=== PATIENT | female | born 1995 | race Caucasian/White ===

== ENCOUNTER → 2016-06-03 | Outpatient (CLI) | payer BC | END | disposition home or self-care (01) | LOC: LABWHC1 15:53 | PROVIDERS: ATTEND Obstetrics & Gynecology | DX: Z34.92 Encounter for supervision of normal pregnancy, unspecified, second trimester (principal); Z3A.00 Weeks of gestation of pregnancy not specified | CPT/HCPCS: 36415; 82105; 82677; 84702; 86336 ==

== ENCOUNTER 2016-07-02 09:39 | Outpatient (CLI) | payer BC ==
[2016-07-02 10:00] LABS: Appearance,Urine Clear (Clear); Bilirubin,Urine Negative (Negative); Glucose,Urine (UA) Negative (Negative); Ketones,Urine 3+ (Negative); Leukocyte Esterase,Urine Negative (Negative); Mucus,Urine Occasional /hpf; Nitrite,Urine Negative (Negative); Particle Count 5969; Protein,Urine 2+ (Negative); Specific Gravity,Urine 1.022 (1.001-1.035); Squamous Epithelial Cell,Urine 4 /hpf (0-4); UA Billing (MACRO vs. MICRO) MICRO; WBC,Urine 3 /hpf (0-5)
[2016-07-02] MEDS ORDERED: ONDANSETRON 4 MG/2 ML VIAL IVP STA (10:12)
[2016-07-02] MEDS: LACTATED RINGERS 1,000 ML IV SCH ×2 (10:25→10:39)
== END 2016-07-02 11:10 | disposition home or self-care (01) ==
LOC: FBPOP 09:39
PROVIDERS: ATTEND Obstetrics & Gynecology
DX: O99.89 Other specified diseases and conditions complicating pregnancy, childbirth and the puerperium (principal); R10.9 Unspecified abdominal pain; R11.2 Nausea with vomiting, unspecified; Z3A.22 22 weeks gestation of pregnancy
CPT/HCPCS: 99214; 96360; 81001; J2405

== ENCOUNTER → 2016-08-24 | Outpatient (CLI) | payer BC, OTHER ==
[2016-08-24 16:00] LABS: CH 31.3; CHCM 34.2; HCT 33.4 % (34.0-46.0); HDW 2.98; HGB 11.1 gm/dL (11.4-16.0); MCH 30.6 pg (25.0-35.0); MCHC 33.3 g/dL (31.0-37.0); Mean Platelet Volume 7.6; RBC 3.63 m/uL (3.80-5.40); RDW 13.8 % (11.5-15.5); WBC 10.8 k/uL (4.0-11.0)
== END | disposition home or self-care (01) ==
LOC: LABWHC1 14:56
PROVIDERS: ATTEND Obstetrics & Gynecology
DX: Z34.82 Encounter for supervision of other normal pregnancy, second trimester (principal); Z3A.00 Weeks of gestation of pregnancy not specified
CPT/HCPCS: 36415; 82950; 85027

== ENCOUNTER 2016-09-01 06:49 | Emergency (ER) | payer BC, OTHER ==
[2016-09-01] MEDS ORDERED: IPRATROPIUM-ALBUTEROL 3 ML NEB INHALATION STA (07:27)
--- NOTE | 2016-09-01 07:29 | ED ---
General Adult HPI - General Chief complaint: Shortness of Breath Stated complaint: SOB-31 WKS Time Seen by Provider: 09/01/16 07:05 Source: patient, RN notes reviewed Mode of arrival: ambulatory Limitations: no limitations - History of Present Illness Initial comments: Patient is a pleasant 21-year-old female presenting to the emergency department with difficulty breathing. Onset was yesterday. Symptoms are worse today. Patient does have cough is dry nonproductive. No fevers. No chest pain. Patient is approximately 31 weeks gravid. No vaginal bleeding. No pelvic pain. Patient is feeling baby move. No history of similar symptoms previously. No history of chronic lung problems. - Related Data Home Medications Medication Instructions Recorded Confirmed Pnv with Ca,No.72/Iron/FA 1 tab PO HS 09/01/16 09/01/16 [ Plus Tablet] Previous Rx's Medication Instructions Recorded Albuterol Inhaler [Ventolin Hfa 2 puff INHALATION Q4HR PRN #1 09/01/16 Inhaler] inhaler Allergies Allergy/AdvReac Type Severity Reaction Status Date / Time No Known Allergies Allergy Verified 09/01/16 07:59 Review of Systems ROS Statement: Those systems with pertinent positive or pertinent negative responses have been documented in the HPI. ROS Other: All systems not noted in ROS Statement are negative. Constitutional: Denies: fever Eyes: Denies: eye pain ENT: Denies: ear pain Respiratory: Reports: cough, dyspnea Cardiovascular: Denies: chest pain Endocrine: Denies: fatigue Gastrointestinal: Denies: abdominal pain Genitourinary: Denies: dysuria Musculoskeletal: Denies: back pain Skin: Denies: rash Neurological: Denies: weakness Past Medical History Past Medical History: No Reported History History of Any Multi-Drug Resistant Organisms: None Reported Past Surgical History: Orthopedic Surgery Additional Past Surgical History / Comment(s): finger and elbow Past Psychological History: ADD/ADHD Smoking Status: Current every day smoker Past Alcohol Use History: None Reported Past Drug Use History: None Reported General Exam Limitations: no limitations General appearance: alert, in no apparent distress Head exam: Present: atraumatic Eye exam: Present: normal appearance, PERRL ENT exam: Present: normal oropharynx Neck exam: Present: normal inspection Respiratory exam: Present: wheezes (Mild expiratory wheeze) Cardiovascular Exam: Present: regular rate, normal rhythm GI/Abdominal exam: Present: soft, distended (Consistent with gravid state). Absent: tenderness Extremities exam: Present: normal inspection. Absent: pedal edema, calf tenderness Neurological exam: Present: alert Psychiatric exam: Present: normal affect, normal mood Skin exam: Absent: rash Course Vital Signs 09/01/16 09/01/16 09/01/16 06:53 07:46 07:53 Temperature 97.5 F L Pulse Rate 72 72 83 Respiratory 24 Rate Blood Pressure 118/73 O2 Sat by Pulse 97 Oximetry 09/01/16 08:39 Temperature 97.3 F L Pulse Rate 77 Respiratory 18 Rate Blood Pressure 120/66 O2 Sat by Pulse 97 Oximetry - Reevaluation(s) Reevaluation #1: 09/01/16 08:43 Patient reevaluated and improved. Lungs are clear. Patient was educated on risk for pulmonary embolism. Patient is felt to be low risk however is not at no risk. Patient is offered computed tomography scan and would like to have this done. Patient is explained risk of radiation exposure. EKG Findings - EKG Comments: EKG Findings:: Normal sinus rhythm 68. Normal intervals. Normal axis. Normal QRS. Normal ST-T. Medical Decision Making - Medical Decision Making Patient again reexamined and still resting symptom-free. Patient updated on results and plan. Patient will be discharged and advised to head to mother- baby. - Lab Data Result diagrams: 09/01/16 08:56 09/01/16 08:56 Lab Results 09/01/16 09/01/16 09/01/16 Range/Units 08:56 08:56 08:56 WBC 13.4 H (4.0-11.0) k/uL RBC 3.69 L (3.80-5.40) m/uL Hgb 11.7 (11.4-16.0) gm/dL Hct 32.7 L (34.0-46.0) % MCV 88.5 (80.0-100.0) fL MCH 31.6 (25.0-35.0) pg MCHC 35.7 (31.0-37.0) g/dL RDW 13.7 (11.5-15.5) % Plt Count 294 (150-450) k/uL Neutrophils % 79 % Lymphocytes % 14 % Monocytes % 4 % Eosinophils % 2 % Basophils % 0 % Neutrophils # 10.6 H (1.3-7.7) k/uL Lymphocytes # 1.8 (1.0-4.8) k/uL Monocytes # 0.6 (0-1.0) k/uL Eosinophils # 0.2 (0-0.7) k/uL Basophils # 0.0 (0-0.2) k/uL PT 9.3 (9.0-12.0) sec INR 0.9 (<1.1) APTT 21.9 L (22.0-30.0) sec Sodium 138 (137-145) mmol/L Potassium 3.7 (3.5-5.1) mmol/L Chloride 110 H (98-107) mmol/L Carbon Dioxide 21 L (22-30) mmol/L Anion Gap 7 mmol/L BUN 3 L (7-17) mg/dL Creatinine 0.48 L (0.52-1.04) mg/dL Est GFR (MDRD) Af Amer >60 (>60 ml/min/1.73 sqM) Est GFR (MDRD) Non-Af >60 (>60 ml/min/1.73 sqM) Glucose 97 (74-99) mg/dL Calcium 9.0 (8.4-10.2) mg/dL Total Bilirubin 0.4 (0.2-1.3) mg/dL AST 18 (14-36) U/L ALT 15 (9-52) U/L Alkaline Phosphatase 128 H (38-126) U/L Total Protein 6.6 (6.3-8.2) g/dL Albumin 3.3 L (3.5-5.0) g/dL - Radiology Data Radiology results: report reviewed (No acute process. No definite pulmonary embolism. Some limited assessment secondary to respiratory motion.), image reviewed (One view chest x-ray shows no acute process) Disposition Clinical Impression: Dyspnea, Bronchospasm Disposition: HOME SELF-CARE Condition: Stable Instructions: Bronchospasm (ED) Additional Instructions: Please head to mother-baby right now. Please follow-up with your [employer]IST in the next day or 2 for follow-up if she do not see them today. Return for fever, difficulty breathing, chest pain, worsening symptoms or other concerns. Prescriptions: Albuterol Inhaler [Ventolin Hfa Inhaler] 2 puff INHALATION Q4HR PRN #1 inhaler PRN Reason: Dyspnea Referrals: None,Stated [Primary Care Provider] - 1-2 days Yvette Addison DO [Doctor of Osteopathic Medicine] - 1-2 days Bekah Morrison MD [STAFF PHYSICIAN] - 1-2 days Time of Disposition: 10:02
--- NOTE | 2016-09-01 08:28 | XR ---
EXAMINATION TYPE: XR chest 1V portable DATE OF EXAM: 09/01/2016 8:21 AM COMPARISON: 07/11/2015 INDICATION: Dyspnea, short of breath TECHNIQUE: Single frontal view of the chest is obtained. Patient was carefully shielded. FINDINGS: The heart size is normal. The pulmonary vasculature is normal. The lungs are clear. IMPRESSION: 1. No acute pulmonary process.
[2016-09-01 08:40] VITALS: PULSE 77; RESP 18
[2016-09-01] MEDS ORDERED: SODIUM CHLORIDE 0.9% 1,000 ML IV STA (08:42)
[2016-09-01] MEDS ORDERED: RX INFO: IV CONTRAST WAS GIVEN 1 EACH MISC MISCELLANE PRN (08:43)
[2016-09-01 09:07] LABS: Basophils % (A) 0 %; CH 31.7; Eosinophils # (A) 0.2 k/uL (0-0.7); Eosinophils % (A) 2 %; HCT 32.7 % (34.0-46.0); HDW 3.16; HGB 11.7 gm/dL (11.4-16.0); Luc % (Auto) 2; Lymphocytes # (A) 1.8 k/uL (1.0-4.8); Lymphocytes % (A) 14 %; MCH 31.6 pg (25.0-35.0); MCHC 35.7 g/dL (31.0-37.0); MCV 88.5 fL (80.0-100.0); Monocytes # (A) 0.6 k/uL (0-1.0); Monocytes % (A) 4 %; Neutrophils # (A) 10.6 k/uL (1.3-7.7); Neutrophils % (A) 79 %; RBC 3.69 m/uL (3.80-5.40); RDW 13.7 % (11.5-15.5); WBC 13.4 k/uL (4.0-11.0); WBC (Perox) 14.55
[2016-09-01 09:17] LABS: ALT 15 U/L (9-52); AST 18 U/L (14-36); Alkaline Phosphatase 128 U/L (38-126); Anion Gap 7 mmol/L; Blood Urea Nitrogen 3 mg/dL (7-17); Carbon Dioxide 21 mmol/L (22-30); Chloride 110 mmol/L (98-107); Glucose 97 mg/dL (74-99); Non-African American GFR(MDRD) >60 (>60 ml/min/1.73 sqM); Potassium 3.7 mmol/L (3.5-5.1); Sodium 138 mmol/L (137-145); Total Bilirubin 0.4 mg/dL (0.2-1.3); Total Protein 6.6 g/dL (6.3-8.2)
[2016-09-01 09:19] LABS: INR 0.9 (<1.1); Partial Thromboplastin Time 21.9 sec (22.0-30.0); Prothrombin Time 9.3 sec (9.0-12.0)
--- NOTE | 2016-09-01 09:29 | CT ---
EXAMINATION TYPE: CT angio chest DATE OF EXAM: 09/01/2016 9:18 AM COMPARISON: NONE HISTORY: 21-year-old female with shortness of breath, cough. Patient 31 weeks . TECHNIQUE: Contiguous axial scanning of the chest performed with IV Contrast, patient injected with 5 9 mL of Omnipaque 350. Coronal/sagittal MIP reconstructions performed. CT DLP: 173.8 mGycm Automated exposure control for dose reduction was used. FINDINGS: The heart is normal size without pericardial effusion. Aorta is normal caliber with conventional arch vessel branching anatomy. While there is satisfactory opacification of the pulmonary arterial system, there is respiratory dillon on artifact grading assessment for pulmonary embolus. Within these exam limitations no definite pulmo nary embolus is seen. There is some hazy dependent atelectasis in the posterior lungs. No consolidation or pleural effusion . Visualized upper abdomen shows no gross abnormality. Bones: No osseous destructive process. IMPRESSION: 1. RESPIRATORY MOTION LIMITING ASSESSMENT. NO DEFINITE PULMONARY EMBOLUS. 2. NO ACUTE PULMONARY PROCESS.
[2016-09-01 10:18] VITALS: BP 119/61; TEMP 97
== END 2016-09-01 10:19 | disposition home or self-care (01) ==
LOC: EC 06:49
DX: O99.513 Diseases of the respiratory system complicating pregnancy, third trimester (principal); J98.01 Acute bronchospasm; O99.333 Smoking (tobacco) complicating pregnancy, third trimester; F17.200 Nicotine dependence, unspecified, uncomplicated; Z3A.31 31 weeks gestation of pregnancy
CPT/HCPCS: 99285; 96360; 36415; 94640; 93005; 80053; 85025; 85610; 85730; 71010; 71275; Q9967; 59025; 99213

== ENCOUNTER 2016-09-01 10:24 | Outpatient (CLI) | payer BC, OTHER ==
[2016-09-01 10:47] VITALS: BP 113/57; PULSE 69; RESP 20; TEMP 96.6
--- NOTE | 2016-09-04 20:46 | P.MSEPDOC ---
Presenting Problems - Arrival Data Date of Arrival on Unit: 09/01/16 Time of Arrival on Unit: 10:24 Mode of Transport: Wheelchair - Complaint OB-Reason for Admission/Chief Complaint: NST Medical History - Information : 1 Para: 0 Term: 0 : 0 Abortions: Spontaneous or Elective: 0 Number of Living Children: 0 - Gestational Age Expected Date of Delivery: 11/01/16 Gestational Age by FRANCO (wks/days): 31 Weeks and 5 Days - History Complications: Smoker Review of Systems - Review of Systems Constitutional: No problems Breast: No problems ENT: No problems Cardiovascular: No problems Respiratory: No problems Gastrointestinal: No problems Genitourinary: No problems Musculoskeletal: No problems Neurological: No problems Skin: No problems Vital Signs - Temperature Temperature: 96.6 F Temperature Source: Skin - Pulse Brachial Pulse Rate: 69 Pulse Assessment Method: Automatic Cuff - Respirations Respiratory Rate: 20 Oxygen Delivery Method: Room Air O2 Sat by Pulse Oximetry: 98 - Blood Pressure Right Arm Blood Pressure: 113/57 Blood Pressure Mean: 75 Blood Pressure Source: Automatic Cuff Medical Screen Scoring (Pre) - Cervical Exam Dilation: Exam Deferred Effacement: Exam Deferred Membranes: Intact - Uterine Contractions Frequency: N/A Duration: N/A Intensity: N/A - Maternal Vital Signs Maternal Temperature: N/A Maternal Blood Pressure: N/A Signs of Preeclampsia: N/A Maternal Respirations: N/A - Maternal Trauma Maternal Trauma: N/A - Assessment Baseline FHR: 130 Heart Rate - NICHD Category: Category I (Normal) = 0 NST: Reactive Position: N/A Station: N/A - Total Score Total Score (Pre): 0 - Level of Risk Level of Risk: Low (0-5) Physician Notification (Pre) - Physician Notified Physician Notified Date: 09/01/16 Physician Notified Time: 11:00 Physician/Practitioner Notifed:: dr rick Spoke With: dr rick - Notification Comment Comment: may discharged home Medical Screen Scoring (Post) - Post Treatment Level of Risk Post Treatment Level of Risk: Low (0-5) Disposition - Disposition OB Disposition: Triage, Discharge to home, Written follow up instructions reviewed Discharge Date: 09/01/16 Discharge Time: 11:10 I agree with the RN Medical Screening Exam: Yes Risk & Benefit of care provided described in d/c instruction: Yes Diagnosis: DECREASED MOVEMENTS, THIRD TRIMESTER, FETUS 1
== END 2016-09-01 11:10 | disposition home or self-care (01) ==
LOC: FBPOP 10:24
PROVIDERS: ATTEND Obstetrics & Gynecology
DX: O36.8190 Decreased fetal movements, unspecified trimester, not applicable or unspecified (principal); Z3A.31 31 weeks gestation of pregnancy
CPT/HCPCS: 59025; 99213

== ENCOUNTER 2016-09-15 11:09 | Outpatient (CLI) | payer BC, OTHER ==
[2016-09-15 11:52] VITALS: BP 118/66; PULSE 88; RESP 16; TEMP 96.1
--- NOTE | 2016-09-15 15:48 | P.MSEPDOC ---
Presenting Problems - Arrival Data Date of Arrival on Unit: 09/15/16 Time of Arrival on Unit: 11:07 Mode of Transport: Wheelchair - Complaint OB-Reason for Admission/Chief Complaint: Decreased Movement Comment: pt arrived c/o decreased movement since monday Medical History - Information : 1 Para: 0 Term: 0 : 0 Abortions: Spontaneous or Elective: 0 Number of Living Children: 0 - Gestational Age Expected Date of Delivery: 11/01/16 Gestational Age by FRANCO (wks/days): 33 Weeks and 2 Days - History Complications: Smoker Review of Systems - Review of Systems Constitutional: No problems Breast: No problems ENT: No problems Cardiovascular: No problems Respiratory: No problems Gastrointestinal: No problems Genitourinary: No problems Musculoskeletal: No problems Neurological: No problems Skin: No problems Vital Signs - Temperature Temperature: 96.1 F Temperature Source: Oral - Pulse Right Brachial Pulse Rate: 88 Pulse Assessment Method: Automatic Cuff - Respirations Respiratory Rate: 16 Oxygen Delivery Method: Room Air - Blood Pressure Right Arm Blood Pressure: 118/66 Blood Pressure Mean: 83 Blood Pressure Source: Automatic Cuff Medical Screen Scoring (Pre) - Cervical Exam Dilation: Exam Deferred Effacement: Exam Deferred - Uterine Contractions Frequency: N/A Duration: N/A Intensity: N/A - Maternal Vital Signs Maternal Temperature: N/A Maternal Blood Pressure: N/A Signs of Preeclampsia: N/A Maternal Respirations: N/A - Maternal Trauma Maternal Trauma: N/A - Assessment Baseline FHR: 140 Heart Rate - NICHD Category: Category I (Normal) = 0 NST: Reactive Position: N/A Station: N/A - Total Score Total Score (Pre): 0 - Level of Risk Level of Risk: Low (0-5) Physician Notification (Pre) - Physician Notified Physician Notified Date: 09/15/16 Physician Notified Time: 11:45 Physician/Practitioner Notifed:: dr hubbard Spoke With: dr hubbard New Order Received: No - Notification Comment Comment: pt discharged to home undelivered with instructions. reactive NST Medical Screen Scoring (Post) - Cervical Exam Dilation: Exam Deferred Effacement: Exam Deferred - Maternal Vital Signs Signs of Preeclampsia: N/A Maternal Respirations: N/A - Maternal Trauma Maternal Trauma: N/A - Assessment Heart Rate: 140 Heart Rate - NICHD Category: Category I (Normal) = 0 NST: Reactive Position: N/A Station: N/A - Total Score Total Score (Post): 0 - Post Treatment Level of Risk Post Treatment Level of Risk: Low (0-5) Physician Notification (Post) - Physician Notified Physician Notified Date: 09/15/16 Spoke With: dr haydee Durham Order Received: Yes (discharge to home) - Notification Comment Comment: reactive NST Disposition - Disposition OB Disposition: Discharge to home, Written follow up instructions reviewed Discharge Date: 09/15/16 Discharge Time: 11:50 I agree with the RN Medical Screening Exam: Yes Risk & Benefit of care provided described in d/c instruction: Yes Diagnosis: DECREASED MOVEMENTS, UNSP TRIMESTER, UNSP
== END 2016-09-15 11:50 | disposition home or self-care (01) ==
LOC: FBPOP 11:09
PROVIDERS: ATTEND Obstetrics & Gynecology
DX: O36.8130 Decreased fetal movements, third trimester, not applicable or unspecified (principal); Z3A.33 33 weeks gestation of pregnancy
CPT/HCPCS: 59025; 99213

== ENCOUNTER 2016-10-26 13:39 | Emergency (ER) | payer BC ==
[2016-10-26 13:57] VITALS: BP 119/79; PULSE 88; RESP 18; TEMP 98.2
[2016-10-26] MEDS ORDERED: PROPARACAINE 0.5% OPHTH DROPS 15 ML BTL ONE (13:59)
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
== END 2016-10-26 14:39 | disposition home or self-care (01) ==
LOC: EC 13:39
DX: S05.01XA Injury of conjunctiva and corneal abrasion without foreign body, right eye, initial encounter (principal); F17.200 Nicotine dependence, unspecified, uncomplicated; W20.8XXA Other cause of strike by thrown, projected or falling object, initial encounter
CPT/HCPCS: 99283

== ENCOUNTER 2016-10-27 06:05 | Inpatient (IN) | payer BC, OTHER ==
[2016-10-27] MEDS ORDERED: OXYTOCIN 20 UNITS/1000 ML NS 1,000 ML IV SCH ×2 (06:22→19:45)
[2016-10-27] MEDS ORDERED: AMPICILLIN 2,000 MG in SODIUM CHLORIDE 0.9% 100 ML IVPB STA (06:22)
[2016-10-27] MEDS ORDERED: OXYTOCIN 10 UNIT/ML 1 ML VIAL IM PRN (06:22)
[2016-10-27] MEDS ORDERED: CARBOPROST TROMETHAMINE 250 MCG/ML 1 ML AMP IM PRN (06:22)
[2016-10-27] MEDS ORDERED: LIDOCAINE 1% (PF) 10 MG/ML (30 ML SDV) SQ PRN (06:22)
[2016-10-27] MEDS ORDERED: TERBUTALINE 1 MG/ML VIAL SQ PRN (06:22)
[2016-10-27] MEDS ORDERED: METHYLERGONOVINE 0.2 MG/ML 1 ML AMP IM PRN (06:22)
[2016-10-27 06:32] LABS: Basophils % (A) 0 %; CH 30.1; CHCM 34.4; Eosinophils # (A) 0.1 k/uL (0-0.7); Eosinophils % (A) 2 %; HCT 35.1 % (34.0-46.0); HDW 3.15; HGB 11.6 gm/dL (11.4-16.0); Luc # (Auto) 0.19; Luc % (Auto) 3; Lymphocytes # (A) 2.1 k/uL (1.0-4.8); Lymphocytes % (A) 28 %; MCHC 33.1 g/dL (31.0-37.0); MCV 87.8 fL (80.0-100.0); Mean Platelet Volume 8.2; Monocytes # (A) 0.4 k/uL (0-1.0); Monocytes % (A) 5 %; Neutrophils # (A) 4.8 k/uL (1.3-7.7); Neutrophils % (A) 63 %; RDW 14.4 % (11.5-15.5); WBC 7.6 k/uL (4.0-11.0); WBC (Perox) 8.32
--- NOTE | 2016-10-27 06:40 | P.HPOB ---
History of Present Illness H&P Date: 10/27/16 Chief Complaint: Induction of Labor 21-year-old presents at 39 weeks and 2 days for induction of labor. Her cervix is 1 cm dilated, 80% effaced, and -2 station. She is frankie irregularly. heart tones 135-140 with moderate variability and reactive. Review of Systems All systems: negative Constitutional: Denies chills, Denies fever Eyes: denies blurred vision, denies pain Ears, nose, mouth and throat: Denies headache, Denies sore throat Cardiovascular: Denies chest pain, Denies shortness of breath Respiratory: Denies cough Gastrointestinal: Denies abdominal pain, Denies diarrhea, Denies nausea, Denies vomiting Genitourinary: Denies dysuria, Denies hematuria Musculoskeletal: Denies myalgias Integumentary: Denies pruritus, Denies rash Neurological: Denies numbness, Denies weakness Psychiatric: Denies anxiety, Denies depression Endocrine: Denies fatigue, Denies weight change Past Medical History Past Medical History: No Reported History Additional Past Medical History / Comment(s): Obstetric history: First was a spontaneous . This is her second . She's had care with me since 9 weeks gestation. Blood type is B+, antibodies negative, rubella immune, RPR nonreactive, hepatitis B negative. GBS positive. Normal anatomy ultrasound. History of Any Multi-Drug Resistant Organisms: None Reported Past Surgical History: Orthopedic Surgery Additional Past Surgical History / Comment(s): finger and elbow Past Anesthesia/Blood Transfusion Reactions: No Reported Reaction Past Psychological History: ADD/ADHD, Depression Smoking Status: Current every day smoker Past Alcohol Use History: None Reported Past Drug Use History: None Reported Medications and Allergies Home Medications Medication Instructions Recorded Confirmed Type Pnv,Calcium 72/Iron/Folic Acid 1 tab PO HS 09/01/16 10/27/16 History [ Plus Tablet] Allergies Allergy/AdvReac Type Severity Reaction Status Date / Time No Known Allergies Allergy Verified 10/27/16 06:21 Exam Osteopathic Statement: *. No significant issues noted on an osteopathic structural exam other than those noted in the History and Physical/Consult. - Vital Signs Vital signs: Intake and Output 10/26/16 10/26/16 10/27/16 14:59 22:59 06:59 Other: Weight 69.4 kg Patient Weight 10/27/16 06:59 Weight 69.4 kg Heart: Regular rate and rhythm Lungs: Clear to auscultation bilaterally Abdomen: Soft, nontender Extremities: Negative Homans sign Results Result Diagrams: 10/27/16 06:20 Assessment and Plan (1) Normal labor Status: Acute Plan: 1. Amniotomy and Pitocin for induction of labor 2. Anticipate normal vaginal delivery
[2016-10-27] MEDS: LACTATED RINGERS 1,000 ML IV SCH ×3 (06:45→13:06)
[2016-10-27 07:17] VITALS: BMI 28.9
[2016-10-27] MEDS ORDERED: ERYTHROMYCIN RIGHT EYE SCH (09:00)
[2016-10-27] MEDS ORDERED: BUTORPHANOL 1 MG/ML 1 ML VIAL IV PRN (10:19)
[2016-10-27] MEDS: AMPICILLIN 1,000 MG in SODIUM CHLORIDE 0.9% 50 ML IVPB SCH ×3 (10:39→21:54)
[2016-10-27] MEDS ORDERED: BUPIVACAINE (PF) 0.25% 30 ML VIAL ONE (12:40)
[2016-10-27] MEDS ORDERED: fentaNYL (PF) 50 MCG/ML 5 ML AMP ONE (12:40)
[2016-10-27] MEDS ORDERED: SODIUM CHLORIDE 0.9% 100 ML BAG ONE (12:40)
[2016-10-27] MEDS ORDERED: diphenhydrAMINE 50 MG/ML 1 ML VIAL IVP PRN ×2 (19:45)
[2016-10-27] MEDS ORDERED: IBUPROFEN 600 MG TAB PO PRN (19:45)
[2016-10-27] MEDS ORDERED: BENZOCAINE SPRAY 57GM TOPICAL PRN (19:45)
[2016-10-27] MEDS ORDERED: WITCH HAZEL 1 EACH MED..PAD TOPICAL PRN (19:45)
[2016-10-27] MEDS ORDERED: LANOLIN CREAM 5 GM TUBE TOPICAL PRN (19:45)
[2016-10-27] MEDS ORDERED: diphenhydrAMINE 50 MG CAP PO PRN (19:45)
[2016-10-27] MEDS ORDERED: diphenhydrAMINE 25 MG CAP PO PRN (19:45)
[2016-10-27] MEDS ORDERED: Acetaminophen-Codeine 300-30mg TAB PO PRN ×2 (19:45)
[2016-10-27] MEDS ORDERED: ACETAMINOPHEN TAB 325 MG TAB PO PRN (19:45)
[2016-10-27] MEDS ORDERED: ZOLPIDEM 5 MG TAB PO PRN (19:45)
[2016-10-27] MEDS ORDERED: HYDROCORTISONE 2.5% RECTAL CREAM 30 GM TUBE RECTAL PRN (19:45)
[2016-10-27] MEDS ORDERED: SIMETHICONE 80 MG CHEWABLE PO PRN (19:45)
--- NOTE | 2016-10-27 19:49 | P.PROBDLV ---
Vaginal Delivery Note - . Vaginal Delivery Note: 21-year-old presented at 39 weeks and 2 days for induction of labor. Her cervix was 1 cm dilated, 80% effaced, and -2 station. She was frankie irregularly. heart tones 130-135 with moderate variability and reactive. Amniotomy was performed at 6:33 AM, clear fluid noted. Pitocin was also started. Ampicillin was started for GBS prophylaxis. When she got to about 3 cm dilated she did get an epidural. Just after the epidural she did have a deceleration in the heart tones that lasted for over 5 minutes but she did have good return to baseline with moderate variability from then on after. Her cervix was completely dilated at 1921. She pushed, and delivered a viable female over intact perineum under epidural anesthesia at 1928. Head delivered OA, anterior shoulder delivered gentle downward traction followed by posterior shoulder and rest of body. Nose and mouth bulb suctioned, cord clamped and cut, placed on mother's abdomen. Apgars 9, 9, weight 5 lbs. 7 oz. Placenta delivered spontaneously, intact with three-vessel cord at 1931. Vagina, cervix, and perineum were inspected. Bilateral labial lacerations were repaired with 3-0 Vicryl. Estimated blood loss 200 mL. Mother and baby in stable condition.
[2016-10-27] MEDS: SENNOSIDES-DOCUSATE SODIUM 1 EACH TAB PO SCH (21:53)
--- NOTE | 2016-10-28 08:03 | P.DS ---
Providers Date of admission: 10/27/16 06:05 Expected date of discharge: 10/28/16 Attending physician: Yvette Addison Primary care physician: Stated None - Discharge Diagnosis(es) (1) Normal labor Current Visit: Yes Status: Resolved (2) Normal vaginal delivery Current Visit: Yes Status: Acute Hospital Course: Patient presented for induction of labor. She underwent a normal vaginal delivery and had an uncomplicated post course. She denies N/V, F/C, CP, SOB, calf pain. She will be discharged home PPD #1 in stable condition to follow up with me in 6 weeks. Plan - Discharge Summary New Discharge Prescriptions: New Acetaminophen-Codeine 300-30mg [Tylenol w/codeine #3] 2 each PO Q4HR PRN #30 tab PRN Reason: Moderate To Severe Pain Ibuprofen [Motrin] 600 mg PO Q6HR PRN #30 tab PRN Reason: Mild Pain Or Fever >= 100.5 No Action Pnv,Calcium 72/Iron/Folic Acid [ Plus Tablet] 1 tab PO HS Erythromycin Ophth Oint [Romycin Ophth Oint] 1 applic RIGHT EYE QID 10 Days Discharge Medication List Pnv,Calcium 72/Iron/Folic Acid [ Plus Tablet] 1 tab PO HS 09/01/16 [ History] Erythromycin Ophth Oint [Romycin Ophth Oint] 1 applic RIGHT EYE QID 10 Days [Rx] Acetaminophen-Codeine 300-30mg [Tylenol w/codeine #3] 2 each PO Q4HR PRN #30 tab 10/28/16 [Rx] Ibuprofen [Motrin] 600 mg PO Q6HR PRN #30 tab 10/28/16 [Rx] Follow up Appointment(s)/Referral(s): Yvette Addison DO [Doctor of Osteopathic Medicine] - 6 Weeks
[2016-10-28] MEDS: SENNOSIDES-DOCUSATE SODIUM 1 EACH TAB PO SCH (08:25)
[2016-10-28 09:04] VITALS: RESP 20
[2016-10-28 17:32] VITALS: BP 148/92; PULSE 86; TEMP 98.2
== END 2016-10-28 20:10 | disposition home or self-care (01) | DRG 775 ==
LOC: 4FBP 06:05
PROVIDERS: ADMIT Obstetrics & Gynecology; ATTEND Obstetrics & Gynecology
PROC: 0HQ9XZZ Repair Perineum Skin, External Approach (ICD-10-PCS; principal; 2016-10-27)
PROC: 00HU33Z Insertion of Infusion Device into Spinal Canal, Percutaneous Approach (ICD-10-PCS; principal; 2016-10-27)
PROC: 10907ZC Drainage of Amniotic Fluid, Therapeutic from Products of Conception, Via Natural or Artificial Opening (ICD-10-PCS; principal; 2016-10-27)
PROC: 3E033VJ Introduction of Other Hormone into Peripheral Vein, Percutaneous Approach (ICD-10-PCS; principal; 2016-10-27)
PROC: 10E0XZZ Delivery of Products of Conception, External Approach (ICD-10-PCS; principal; 2016-10-27)
PROC: 3E0R3CZ (ICD-10-PCS; principal; 2016-10-27)
DX: O99.824 Streptococcus B carrier state complicating childbirth (principal); F17.200 Nicotine dependence, unspecified, uncomplicated; Z37.0 Single live birth; O70.0 First degree perineal laceration during delivery; O99.334 Smoking (tobacco) complicating childbirth; Z3A.39 39 weeks gestation of pregnancy; O76 Abnormality in fetal heart rate and rhythm complicating labor and delivery
CPT/HCPCS: 85025; 88307

== ENCOUNTER 2017-01-12 21:10 | Emergency (ER) | payer BC, OTHER ==
[2017-01-12] MEDS ORDERED: ONDANSETRON 4 MG/2 ML VIAL IVP STA (21:24)
[2017-01-12] MEDS ORDERED: LORazepam 2 MG/ML SYRINGE IV STA (21:24)
[2017-01-12] MEDS ORDERED: METOCLOPRAMIDE 5 MG/ML 2 ML VIAL IVP STA (21:24)
[2017-01-12] MEDS ORDERED: diphenhydrAMINE 50 MG/ML 1 ML VIAL IVP STA (21:24)
[2017-01-12] MEDS ORDERED: SODIUM CHLORIDE 0.9% 1,000 ML IV STA (21:24)
[2017-01-12] MEDS ORDERED: KETOROLAC 30 MG/ML 1 ML VIAL IVP STA (21:24)
--- NOTE | 2017-01-12 21:26 | ED ---
General Adult HPI - General Chief complaint: Headache Stated complaint: Migraine Time Seen by Provider: 01/12/17 21:18 Source: patient, RN notes reviewed, old records reviewed Mode of arrival: ambulatory Limitations: no limitations - History of Present Illness Initial comments: This is a 21-year-old female here for evaluation of migraine. Patient has severe migraine with active nausea vomiting. Patient states she has history of migraines history of the exact same headache that she is having now. Hospital deficit. Just severe nausea vomiting and headache headache is one sided, anterior with throbbing, - Related Data Home Medications Medication Instructions Recorded Confirmed Pnv,Calcium 72/Iron/Folic Acid 1 tab PO HS 09/01/16 01/12/17 [ Plus Tablet] Previous Rx's Medication Instructions Recorded Ibuprofen [Motrin] 600 mg PO Q6HR PRN #30 tab 10/28/16 Allergies Allergy/AdvReac Type Severity Reaction Status Date / Time No Known Allergies Allergy Verified 10/27/16 06:21 Review of Systems ROS Statement: Those systems with pertinent positive or pertinent negative responses have been documented in the HPI. ROS Other: All systems not noted in ROS Statement are negative. Past Medical History Past Medical History: No Reported History Additional Past Medical History / Comment(s): Obstetric history: First was a spontaneous . This is her second . She's had care with me since 9 weeks gestation. Blood type is B+, antibodies negative, rubella immune, RPR nonreactive, hepatitis B negative. GBS positive. Normal anatomy ultrasound. History of Any Multi-Drug Resistant Organisms: None Reported Past Surgical History: Orthopedic Surgery Additional Past Surgical History / Comment(s): finger and elbow Past Anesthesia/Blood Transfusion Reactions: No Reported Reaction Past Psychological History: ADD/ADHD, Depression Smoking Status: Current every day smoker Past Alcohol Use History: None Reported Past Drug Use History: None Reported - Past Family History Mother Family Medical History: Thyroid Disorder General Exam Limitations: no limitations General appearance: alert, in no apparent distress Head exam: Present: atraumatic, normocephalic, normal inspection Eye exam: Present: normal appearance, PERRL, EOMI. Absent: scleral icterus, conjunctival injection, periorbital swelling ENT exam: Present: normal exam, mucous membranes moist Neck exam: Present: normal inspection. Absent: tenderness, meningismus, lymphadenopathy Respiratory exam: Present: normal lung sounds bilaterally. Absent: respiratory distress, wheezes, rales, rhonchi, stridor Cardiovascular Exam: Present: regular rate, normal rhythm, normal heart sounds. Absent: systolic murmur, diastolic murmur, rubs, gallop, clicks GI/Abdominal exam: Present: soft, normal bowel sounds. Absent: distended, tenderness, guarding, rebound, rigid Extremities exam: Present: normal inspection, full ROM, normal capillary refill. Absent: tenderness, pedal edema, joint swelling, calf tenderness Back exam: Present: normal inspection Neurological exam: Present: alert, oriented X3, CN II-XII intact Psychiatric exam: Present: normal affect, normal mood Skin exam: Present: warm, dry, intact, normal color. Absent: rash Course Vital Signs 01/12/17 21:13 Temperature 98.2 F Pulse Rate 65 Respiratory 20 Rate Blood Pressure 125/77 O2 Sat by Pulse 98 Oximetry - Reevaluation(s) Reevaluation #1: 01/12/17 21:25 Medical records to review of Medical Decision Making - Medical Decision Making 21 female in the ER with migraine headache, headache is improved prior to discharge. Patient's eye better and can be discharged home Disposition Clinical Impression: Migraine Disposition: HOME SELF-CARE Condition: Good Instructions: Acute Headache (ED) Referrals: None,Stated [Primary Care Provider] - 1-2 days
[2017-01-12 22:56] VITALS: BP 141/63; PULSE 63; RESP 16; TEMP 97.9
== END 2017-01-12 22:55 | disposition home or self-care (01) ==
LOC: EC 21:10
DX: G43.909 Migraine, unspecified, not intractable, without status migrainosus (principal); R11.2 Nausea with vomiting, unspecified; F17.200 Nicotine dependence, unspecified, uncomplicated; Z79.899 Other long term (current) drug therapy
CPT/HCPCS: 99283; 96374; 96375 ×4; 96361; J2060; J1200; J2765; J2405; J1885

== ENCOUNTER 2017-05-17 20:08 | Emergency (ER) | payer BC, OTHER ==
[2017-05-17] MEDS ORDERED: diphenhydrAMINE 50 MG/ML 1 ML VIAL IVP STA (20:51)
[2017-05-17] MEDS ORDERED: KETOROLAC 30 MG/ML 1 ML VIAL IVP STA (20:51)
[2017-05-17] MEDS ORDERED: SODIUM CHLORIDE 0.9% 1,000 ML IV STA (20:51)
[2017-05-17] MEDS ORDERED: METOCLOPRAMIDE 5 MG/ML 2 ML VIAL IVP STA (20:51)
[2017-05-17 23:37] VITALS: BP 127/90; PULSE 81; RESP 18; TEMP 97
--- NOTE | 2017-05-18 04:32 | ED ---
Headache HPI - General Chief Complaint: Headache Stated Complaint: Headache Time Seen by Provider: 05/17/17 20:37 Mode of arrival: ambulatory Limitations: no limitations - History of Present Illness Initial Comments: 22-year-old female patient presents to the emergency department today for evaluation of migraine headache. Patient states that she frequently does have migraines. States that she has been evaluated by her doctor and is treated with Aleve for these. She states that this headache started approximately one to 2 hours ago. States that she is having light and sound sensitivity with this. States that she is having blurred vision. She states she has been nauseated however has not vomited. She denies any neck pain, fever, dizziness, or weakness. States that these symptoms are very consistent with her usual migraine pattern. She states she did take Aleve without relief. She states prior to the headache she was feeling well. Patient denies any recent rash, shortness breath, chest pain, abdominal pain, nausea, vomiting, diarrhea, constipation, back pain, numbness, tingling, hematuria, dysuria, urinary urgency , urinary frequency, or any other complaints. - Related Data Home Medications Medication Instructions Recorded Confirmed Naproxen Sodium [Aleve] 440 mg PO DAILY PRN 05/17/17 05/17/17 Allergies Allergy/AdvReac Type Severity Reaction Status Date / Time tetanus and diphtheria Allergy Unknown Verified 05/17/17 20:23 toxoids Review of Systems ROS Statement: Those systems with pertinent positive or pertinent negative responses have been documented in the HPI. ROS Other: All systems not noted in ROS Statement are negative. Past Medical History Past Medical History: No Reported History Additional Past Medical History / Comment(s): migraines History of Any Multi-Drug Resistant Organisms: None Reported Past Surgical History: Orthopedic Surgery Additional Past Surgical History / Comment(s): finger and elbow Past Anesthesia/Blood Transfusion Reactions: No Reported Reaction Past Psychological History: ADD/ADHD, Depression Smoking Status: Current every day smoker Past Alcohol Use History: None Reported Past Drug Use History: None Reported - Past Family History Mother Family Medical History: Thyroid Disorder General Exam Limitations: no limitations General appearance: alert, in no apparent distress, other (This is a well- developed, well-nourished adult patient in no acute distress. Vital signs upon presentation are temperature 97.0F, pulse 81, respirations 18, blood pressure 127/90, pulse ox 98% on room air.) Eye exam: Present: normal appearance, PERRL, EOMI. Absent: scleral icterus, conjunctival injection, periorbital swelling ENT exam: Present: normal exam, normal oropharynx, mucous membranes moist, TM's normal bilaterally Neck exam: Present: normal inspection. Absent: tenderness, meningismus, lymphadenopathy Respiratory exam: Present: normal lung sounds bilaterally. Absent: respiratory distress, wheezes, rales, rhonchi, stridor Cardiovascular Exam: Present: regular rate, normal rhythm, normal heart sounds. Absent: systolic murmur, diastolic murmur, rubs, gallop, clicks GI/Abdominal exam: Present: soft, normal bowel sounds. Absent: distended, tenderness, guarding, rebound, rigid Neurological exam: Present: alert, oriented X3, CN II-XII intact, other ( Strength in all 4 extremities is 5/5.) Psychiatric exam: Present: normal affect, normal mood Skin exam: Present: warm, dry, intact, normal color. Absent: rash Course Vital Signs 05/17/17 20:09 Temperature 97.0 F L Pulse Rate 81 Respiratory 18 Rate Blood Pressure 127/90 O2 Sat by Pulse 98 Oximetry Medical Decision Making - Medical Decision Making 22-year-old female patient presented to the emergency department today with complaints of migraine headache. Physical examination was unremarkable. Patient was neurologically intact. Medications and IV were ordered. She did receive these medications. Shortly after receiving the medications patient pulled out her IV and eloped from the department. I was unable to evaluate the medications effectiveness or perform reevaluation. Disposition Clinical Impression: Migraine, Left against medical advice Disposition: Left Against Medical Advice Condition: Undetermined Referrals: None,Stated [Primary Care Provider] - 1-2 days
== END 2017-05-17 21:50 | disposition left against medical advice (07) ==
LOC: EC 20:08
DX: G43.909 Migraine, unspecified, not intractable, without status migrainosus (principal); F17.200 Nicotine dependence, unspecified, uncomplicated; Z88.7 Allergy status to serum and vaccine
CPT/HCPCS: 99283; 96374; 96375 ×2; J1200; J2765; J1885

== ENCOUNTER 2018-04-25 09:23 | Emergency (ER) | payer BC, OTHER ==
[2018-04-25] MEDS ORDERED: SODIUM CHLORIDE 0.9% 500 ML 500 ML IV STA (10:19)
[2018-04-25] MEDS ORDERED: KETOROLAC 30 MG/ML 1 ML VIAL IVP STA (10:19)
--- NOTE | 2018-04-25 10:27 | ED ---
General Adult HPI - General Chief complaint: Back Pain/Injury Stated complaint: Back Pain Time Seen by Provider: 04/25/18 10:00 Source: patient, RN notes reviewed Mode of arrival: ambulatory Limitations: no limitations - History of Present Illness Initial comments: This is a 23-year-old female presents emergency Department stating 1 week ago she had 3 days interval where she was having hematuria. Patient states she was also having some right-sided flank and suprapubic abdominal pain at that time but since then the pain is gotten considerably worse particularly in her back about the CVA area in her right side only. Patient denies any fever chills per patient states she's been nauseated and has vomited. Patient denies any diarrhea. Patient denies any abdominal surgeries. Patient states she's never had symptoms like this before except for maybe a urinary tract infection. Patient states she is not currently on her period. - Related Data Previous Rx's Medication Instructions Recorded Sulfamethox-Tmp 800-160Mg [Bactrim 1 each PO Q12HR #28 tab 04/25/18 DS 800-160 mg] Allergies Allergy/AdvReac Type Severity Reaction Status Date / Time tetanus and diphtheria Allergy Unknown Verified 04/25/18 10:02 toxoids Review of Systems ROS Statement: Those systems with pertinent positive or pertinent negative responses have been documented in the HPI. ROS Other: All systems not noted in ROS Statement are negative. Past Medical History Past Medical History: No Reported History Additional Past Medical History / Comment(s): Obstetric history: First was a spontaneous . This is her second . She's had care with me since 9 weeks gestation. Blood type is B+, antibodies negative, rubella immune, RPR nonreactive, hepatitis B negative. GBS positive. Normal anatomy ultrasound. History of Any Multi-Drug Resistant Organisms: None Reported Past Surgical History: Orthopedic Surgery Additional Past Surgical History / Comment(s): finger and elbow Past Anesthesia/Blood Transfusion Reactions: No Reported Reaction Past Psychological History: ADD/ADHD, Depression Smoking Status: Current every day smoker Past Alcohol Use History: None Reported Past Drug Use History: None Reported - Past Family History Mother Family Medical History: Thyroid Disorder General Exam - General Exam Comments Initial Comments: GENERAL: Patient is well-developed and well-nourished. Patient is nontoxic and well- hydrated and is in mild distress. ENT: Neck is soft and supple. No significant lymphadenopathy is noted. Oropharynx is clear. Moist mucous membranes. Neck has full range of motion without eliciting any pain. EYES: The sclera were anicteric and conjunctiva were pink and moist. Extraocular movements were intact and pupils were equal round and reactive to light. Eyelids were unremarkable. PULMONARY: Unlabored respirations. Good breath sounds bilaterally. No audible rales rhonchi or wheezing was noted. CARDIOVASCULAR: There is a regular rate and rhythm without any murmurs gallops or rubs. ABDOMEN: Patient has tenderness in the suprapubic region bilaterally. SKIN: Skin is clear with no lesions or rashes and otherwise unremarkable. NEUROLOGIC: Patient is alert and oriented x3. Cranial nerves II through XII are grossly intact. Motor and sensory are also intact. Normal speech, volume and content. Symmetrical smile. MUSCULOSKELETAL: Normal extremities with adequate strength and full range of motion. No lower extremity swelling or edema. No calf tenderness. Patient has CVA tenderness on the right LYMPHATICS: No significant lymphadenopathy is noted PSYCHIATRIC: Normal psychiatric evaluation. Limitations: no limitations Course Vital Signs 04/25/18 09:34 Temperature 98.0 F Pulse Rate 95 Respiratory 20 Rate Blood Pressure 133/93 O2 Sat by Pulse 100 Oximetry Medical Decision Making - Medical Decision Making CAT scan showed signs consistent with cystitis. The urine was infected I gave the patient 2 g of Rocephin as well as Toradol shot. I went back into reexamine the patient and she was sleeping and pain-free in looking to go home. Patient also had signs of pyelonephritis on physical exam - Lab Data Result diagrams: 04/25/18 10:41 04/25/18 10:41 Lab Results 04/25/18 04/25/18 04/25/18 Range/Units 10:41 10:41 10:41 WBC 13.1 H (3.8-10.6) k/uL RBC 4.88 (3.80-5.40) m/uL Hgb 14.6 (11.4-16.0) gm/dL Hct 42.6 (34.0-46.0) % MCV 87.4 (80.0-100.0) fL MCH 29.8 (25.0-35.0) pg MCHC 34.2 (31.0-37.0) g/dL RDW 12.9 (11.5-15.5) % Plt Count 319 (150-450) k/uL Neutrophils % 76 % Lymphocytes % 13 % Monocytes % 7 % Eosinophils % 2 % Basophils % 0 % Neutrophils # 10.0 H (1.3-7.7) k/uL Lymphocytes # 1.7 (1.0-4.8) k/uL Monocytes # 0.9 (0-1.0) k/uL Eosinophils # 0.3 (0-0.7) k/uL Basophils # 0.0 (0-0.2) k/uL PT 9.9 (9.0-12.0) sec INR 0.9 (<1.2) APTT 25.5 (22.0-30.0) sec Sodium 140 (137-145) mmol/L Potassium 4.3 (3.5-5.1) mmol/L Chloride 106 (98-107) mmol/L Carbon Dioxide 24 (22-30) mmol/L Anion Gap 10 mmol/L BUN 9 (7-17) mg/dL Creatinine 0.58 (0.52-1.04) mg/dL Est GFR (CKD-EPI)AfAm >90 (>60 ml/min/1.73 sqM) Est GFR (CKD-EPI)NonAf >90 (>60 ml/min/1.73 sqM) Glucose 98 (74-99) mg/dL Calcium 9.7 (8.4-10.2) mg/dL Total Bilirubin 0.8 (0.2-1.3) mg/dL AST 22 (14-36) U/L ALT 24 (9-52) U/L Alkaline Phosphatase 97 (38-126) U/L Total Protein 7.2 (6.3-8.2) g/dL Albumin 4.1 (3.5-5.0) g/dL Amylase 34 (30-110) U/L Lipase 39 (23-300) U/L Urine Color Urine Appearance (Clear) Urine pH (5.0-8.0) Ur Specific [place] (1.001-1.035) Urine Protein (Negative) Urine Glucose (UA) (Negative) Urine Ketones (Negative) Urine Blood (Negative) Urine Nitrite (Negative) Urine Bilirubin (Negative) Urine Urobilinogen (<2.0) mg/dL Ur Leukocyte Esterase (Negative) Urine RBC (0-5) /hpf Urine WBC (0-5) /hpf Urine WBC Clumps (None) /hpf Urine Bacteria (None) /hpf Urine Mucus (None) /hpf Urine HCG, Qual (Not Detectd) 04/25/18 04/25/18 Range/Units 10:41 10:41 WBC (3.8-10.6) k/uL RBC (3.80-5.40) m/uL Hgb (11.4-16.0) gm/dL Hct (34.0-46.0) % MCV (80.0-100.0) fL MCH (25.0-35.0) pg MCHC (31.0-37.0) g/dL RDW (11.5-15.5) % Plt Count (150-450) k/uL Neutrophils % % Lymphocytes % % Monocytes % % Eosinophils % % Basophils % % Neutrophils # (1.3-7.7) k/uL Lymphocytes # (1.0-4.8) k/uL Monocytes # (0-1.0) k/uL Eosinophils # (0-0.7) k/uL Basophils # (0-0.2) k/uL PT (9.0-12.0) sec INR (<1.2) APTT (22.0-30.0) sec Sodium (137-145) mmol/L Potassium (3.5-5.1) mmol/L Chloride (98-107) mmol/L Carbon Dioxide (22-30) mmol/L Anion Gap mmol/L BUN (7-17) mg/dL Creatinine (0.52-1.04) mg/dL Est GFR (CKD-EPI)AfAm (>60 ml/min/1.73 sqM) Est GFR (CKD-EPI)NonAf (>60 ml/min/1.73 sqM) Glucose (74-99) mg/dL Calcium (8.4-10.2) mg/dL Total Bilirubin (0.2-1.3) mg/dL AST (14-36) U/L ALT (9-52) U/L Alkaline Phosphatase (38-126) U/L Total Protein (6.3-8.2) g/dL Albumin (3.5-5.0) g/dL Amylase (30-110) U/L Lipase (23-300) U/L Urine Color Yellow Urine Appearance Cloudy H (Clear) Urine pH 7.0 (5.0-8.0) Ur Specific [place] 1.013 (1.001-1.035) Urine Protein 1+ H (Negative) Urine Glucose (UA) Negative (Negative) Urine Ketones Negative (Negative) Urine Blood Small H (Negative) Urine Nitrite Negative (Negative) Urine Bilirubin Negative (Negative) Urine Urobilinogen <2.0 (<2.0) mg/dL Ur Leukocyte Esterase Large H (Negative) Urine RBC 37 H (0-5) /hpf Urine WBC >182 H (0-5) /hpf Urine WBC Clumps Few H (None) /hpf Urine Bacteria Rare H (None) /hpf Urine Mucus Rare H (None) /hpf Urine HCG, Qual Not Detected (Not Detectd) Disposition Clinical Impression: Pyelonephritis, Cystitis Disposition: HOME SELF-CARE Condition: Good Instructions: Kidney Infection (ED) Prescriptions: Sulfamethox-Tmp 800-160Mg [Bactrim DS 800-160 mg] 1 each PO Q12HR #28 tab Is patient prescribed a controlled substance at d/c from ED?: No Referrals: None,Stated [Primary Care Provider] - 1-2 days Time of Disposition: 12:47
[2018-04-25 11:04] LABS: Appearance,Urine Cloudy (Clear); Bacteria,Urine Rare /hpf; Bilirubin,Urine Negative (Negative); Blood,Urine Small (Negative); Color,Urine Yellow; Glucose,Urine (UA) Negative (Negative); Ketones,Urine Negative (Negative); Leukocyte Esterase,Urine Large (Negative); Mucus,Urine Rare /hpf; Nitrite,Urine Negative (Negative); Protein,Urine 1+ (Negative); RBC,Urine 37 /hpf (0-5); Specific Gravity,Urine 1.013 (1.001-1.035); Urobilinogen,Urine <2.0 mg/dL (<2.0); WBC,Urine >182 /hpf (0-5)
[2018-04-25 11:07] LABS: Basophils % (A) 0 %; Eosinophils # (A) 0.3 k/uL (0-0.7); Eosinophils % (A) 2 %; HCT 42.6 % (34.0-46.0); HGB 14.6 gm/dL (11.4-16.0); Lymphocytes # (A) 1.7 k/uL (1.0-4.8); Lymphocytes % (A) 13 %; MCH 29.8 pg (25.0-35.0); MCHC 34.2 g/dL (31.0-37.0); MCV 87.4 fL (80.0-100.0); Mean Platelet Volume 8.1; Monocytes # (A) 0.9 k/uL (0-1.0); Monocytes % (A) 7 %; Neutrophils % (A) 76 %; Platelet Count 319 k/uL (150-450); RBC 4.88 m/uL (3.80-5.40); RDW 12.9 % (11.5-15.5); WBC 13.1 k/uL (3.8-10.6)
[2018-04-25 11:09] LABS: ALT 24 U/L (9-52); AST 22 U/L (14-36); Albumin 4.1 g/dL (3.5-5.0); Alkaline Phosphatase 97 U/L (38-126); Amylase 34 U/L (30-110); Anion Gap 10 mmol/L; Blood Urea Nitrogen 9 mg/dL (7-17); Calcium 9.7 mg/dL (8.4-10.2); Carbon Dioxide 24 mmol/L (22-30); Chloride 106 mmol/L (98-107); Glucose 98 mg/dL (74-99); Lipase 39 U/L (23-300); Potassium 4.3 mmol/L (3.5-5.1); Sodium 140 mmol/L (137-145); Total Bilirubin 0.8 mg/dL (0.2-1.3); Total Protein 7.2 g/dL (6.3-8.2)
[2018-04-25] MEDS ORDERED: cefTRIAXone 2,000 MG in SODIUM CHLORIDE 0.9% 100 ML IVPB STA (11:23)
[2018-04-25 11:40] LABS: INR 0.9 (<1.2); Partial Thromboplastin Time 25.5 sec (22.0-30.0); Prothrombin Time 9.9 sec (9.0-12.0)
--- NOTE | 2018-04-25 11:56 | CT ---
EXAMINATION TYPE: CT abdomen pelvis wo con DATE OF EXAM: 04/25/2018 COMPARISON: None HISTORY: Back pain, hematuria CT DLP: 277.5 mGycm Automated exposure control for dose reduction was used. TECHNIQUE: Helical acquisition of images was performed from the lung bases through the pelvis. FINDINGS: LUNG BASES: No significant abnormality is appreciated. LIVER/GB: No significant abnormality is appreciated. Small amount of biliary sludge layers within the gallbladder dependently. PANCREAS: No significant abnormality is seen. SPLEEN: No significant abnormality is seen. ADRENALS: No significant abnormality is seen. KIDNEYS: There is no hydronephrosis or evidence of obstructive uropathy. No ureteral calculi are seen . Diffuse medullary spongy hyperdensities can be seen in a mild form of medullary sponge kidney. FREE AIR: No free air is visualized RETROPERITONEAL ADENOPATHY: No greater than 1 cm short axis lymph nodes are seen within the abdomen or pelvis. REPRODUCTIVE ORGANS: Follicular and/or cystic changes are seen of both ovaries. URINARY BLADDER: There is circumferential urinary bladder wall thickening that could relate to incomp lete distention although cystitis is suspected as there is mild perivesicular fat stranding centrally seen such as on series 201 image 113. OSSEOUS STRUCTURES: No significant abnormality is seen. BOWEL: There is a punctate appendicolith within the distal appendix. No dilated appendix. Appendix i s air-filled without periappendiceal fat stranding. There is a moderate amount retained colonic stool noted no dilated large or small bowel. Sacroiliac joint sclerosis is seen that can be seen in inflam matory bowel disease, arthropathy, or early degenerative change. IMPRESSION: 1. DIFFUSE URINARY BLADDER WALL THICKENING AND MILD PERIVESICULAR FAT STRANDING IS MOST COMPATIBLE WI TH CYSTITIS. SMUDGY MEDULLARY PYRAMID CALCIFICATIONS BILATERALLY SUGGESTS A MILD FORM OF MEDULLARY SP ONGE KIDNEY. 2. PUNCTATE APPENDICOLITH WITHIN THE DISTAL APPENDIX. NO EVIDENCE OF ACUTE APPENDICITIS.
[2018-04-25 13:28] VITALS: TEMP 98.1
[2018-04-25 14:22] VITALS: BP 127/84; PULSE 89; RESP 16
== END 2018-04-25 14:20 | disposition home or self-care (01) ==
LOC: EC 09:23
DX: N12 Tubulo-interstitial nephritis, not specified as acute or chronic (principal); N30.91 Cystitis, unspecified with hematuria; F17.200 Nicotine dependence, unspecified, uncomplicated; Z88.7 Allergy status to serum and vaccine
CPT/HCPCS: 36415; 74176; 80053; 81001; 81025; 82150; 83690; 85025; 85610; 85730; 87086; 96361; 96365; 96375; 99284

== ENCOUNTER 2018-10-20 04:04 | Emergency (ER) | payer BC, OTHER ==
--- NOTE | 2018-10-20 04:34 | ED ---
Headache HPI - General Chief Complaint: Headache Stated Complaint: Migrane Time Seen by Provider: 10/20/18 04:15 Mode of arrival: ambulatory - History of Present Illness Initial Comments: Is a 23-year-old female with a history of migraines who presents to the emergency department this morning for evaluation of migraine headache. Patient reports the headache began around 10 PM and gradually worsened she took 2 ibuprofen around 11 PM which helped a little bit but she continues to have a headache so she came to the ER for evaluation. Headache was not sudden in onset is not associated with any focal neurologic deficits, not associated with fever. Headache is similar in character to previous headaches it is right sided sharp. MD Complaint: headache -: hour(s) Onset Description: gradual Location: right Severity: moderate Quality: sharp Consistency: constant Improves With: medication Worsens With: light, noise Associated Symptoms: photophobia Treatments Prior to Arrival: Ibuprofen - Related Data On Hormonal Control: No Previous Rx's Medication Instructions Recorded Sulfamethox-Tmp 800-160Mg [Bactrim 1 each PO Q12HR #28 tab 04/25/18 DS 800-160 mg] Allergies Allergy/AdvReac Type Severity Reaction Status Date / Time tetanus and diphtheria Allergy Unknown Verified 10/20/18 04:10 toxoids Review of Systems ROS Statement: Those systems with pertinent positive or pertinent negative responses have been documented in the HPI. ROS Other: All systems not noted in ROS Statement are negative. Past Medical History Past Medical History: No Reported History Additional Past Medical History / Comment(s): Obstetric history: First was a spontaneous . This is her second . She's had care with ms since 9 weeks gestation. Blood type is B+, antibodies negative, rubella immune, RPR nonreactive, hepatitis B negative. GBS positive. Normal anatomy ultrasound. migranes History of Any Multi-Drug Resistant Organisms: None Reported Past Surgical History: Orthopedic Surgery Additional Past Surgical History / Comment(s): finger and elbow Past Anesthesia/Blood Transfusion Reactions: No Reported Reaction Past Psychological History: ADD/ADHD, Depression Smoking Status: Current every day smoker Past Alcohol Use History: None Reported Past Drug Use History: Marijuana - Past Family History Mother Family Medical History: Thyroid Disorder General Exam - General Exam Comments Initial Comments: GENERAL: Patient is well-developed and well-nourished. Patient is nontoxic and well-hydrated and is in no distress. HENT: Normocephalic, Atraumatic. Neck is soft and supple. No significant lymphadenopathy is noted. Moist mucous membranes. Neck has full range of motion without eliciting any pain. EYES: The sclera were anicteric and conjunctiva were pink and moist. Extraocular movements were intact and pupils were equal round and reactive to light. PULMONARY: Unlabored respirations. CARDIOVASCULAR: There is a regular rate and rhythm without any murmurs gallops or rubs. ABDOMEN: Soft and nontender with normal bowel sounds. SKIN: Skin is clear with no lesions or rashes and otherwise unremarkable. NEUROLOGIC: Patient is alert and oriented x3. Cranial nerves II through XII are grossly intact. Motor and sensory are also intact. Normal speech, volume and content. Symmetrical smile. MUSCULOSKELETAL: Normal extremities with adequate strength and full range of motion. No lower extremity swelling or edema. No calf tenderness. PSYCHIATRIC: No SI/HI Course Vital Signs 10/20/18 10/20/18 10/20/18 04:06 04:20 04:40 Temperature 98.0 F Pulse Rate 83 Respiratory 18 Rate Blood Pressure 163/112 173/118 143/103 O2 Sat by Pulse 99 Oximetry 10/20/18 06:58 Temperature 98.1 F Pulse Rate 76 Respiratory 19 Rate Blood Pressure 124/78 O2 Sat by Pulse 100 Oximetry - Reevaluation(s) Reevaluation #1: She was reevaluated she sleeping comfortably in bed. Patient refusing to give a urine sample. 10/20/18 05:38 Medical Decision Making - Medical Decision Making The patient was seen and evaluated history is obtained from patient and significant other at bedside next thing 23-year-old female with a history of headaches with a headache is been progressively worsening for approximately 6 hours took ibuprofen which helped but continued to have a headache so she came to ER for evaluation. Patient reports there is possibility of . Head CT was ordered, patient was advised that we cannot give medications until we have confirmatory test. Patient returned from computed tomography scan and was resting comfortably she declined to give a urine test states that she didn't need to. We reminded her again that we cannot give medications until her urine sample results. Patient was found be sleeping comfortably in no acute distress didn't seem to be in any pain. Head CT had no acute findings and decision was made to discharge patient home. Disposition Clinical Impression: Headache Disposition: HOME SELF-CARE Condition: Stable Instructions (If sedation given, give patient instructions): Acute Headache (ED) Is patient prescribed a controlled substance at d/c from ED?: No Referrals: None,Stated [Primary Care Provider] - 1-2 days
--- NOTE | 2018-10-20 05:17 | CT ---
EXAM: CT Head Without Intravenous Contrast CLINICAL HISTORY: Headache, hypertension. TECHNIQUE: Axial computed tomography images of the head/brain without intravenous contrast. Coronal and sagittal reformations provided. CTDI is 49.27 mGy and DLP is 1075.4 mGy-cm. This CT exam was performed using one or more of the following dose reduction techniques: automated exposure control, adjustment of the mA and/or kV according to patient size, and/or use of iterative reconstruction technique. COMPARISON: No relevant prior studies available. FINDINGS: Brain: No acute intracranial hemorrhage. No evidence of acute territorial infarct. No significant white matter disease. No edema. Hypoattenuation in posterior fossa is artifact related to dense otic capsule. No mass effect or midline shift. Ventricles: Unremarkable. No ventriculomegaly. Bones/joints: Unremarkable. No acute fracture. Soft tissues: Unremarkable. Sinuses: Unremarkable as visualized. No acute sinusitis. Mastoid air cells: Unremarkable as visualized. No mastoid effusion. IMPRESSION: No evidence of acute intracranial abnormality.
[2018-10-20] MEDS ORDERED: SODIUM CHLORIDE 0.9% 1,000 ML IV ONE (05:26)
[2018-10-20 06:59] VITALS: BP 124/78; PULSE 76; RESP 19; TEMP 98.1
== END 2018-10-20 06:59 | disposition home or self-care (01) ==
LOC: EC 04:04
DX: R51 Headache (principal); F17.200 Nicotine dependence, unspecified, uncomplicated; Z88.7 Allergy status to serum and vaccine
CPT/HCPCS: 70450; 96360; 99283

== ENCOUNTER 2021-02-18 09:11 | Emergency (ER) | payer BC, OTHER ==
[2021-02-18 09:30] VITALS: TEMP 97.8
[2021-02-18] MEDS ORDERED: SODIUM CHLORIDE 0.9% 1,000 ML IV STA (09:47)
[2021-02-18] MEDS ORDERED: KETOROLAC 15 MG/ML 1 ML VIAL IVP STA (09:47)
[2021-02-18] MEDS ORDERED: diphenhydrAMINE 50 MG/ML 1 ML VIAL IVP STA (09:47)
[2021-02-18 10:08] VITALS: RESP 16
--- NOTE | 2021-02-18 10:25 | ED ---
General Adult HPI - General Chief complaint: Nausea/Vomiting/Diarrhea Stated complaint: headache & vomiting Time Seen by Provider: 02/18/21 09:34 Source: patient, RN notes reviewed Mode of arrival: wheelchair Limitations: no limitations - History of Present Illness Initial comments: This a 26-year-old female presents emergency Department chief complaint of migraine headache. Patient suffers chronic migraine states that side except days ago. On alleviated with [id number] medications. Denies any abdominal pain denies any chance . She does admit to nausea vomiting. She states is very typical for her normal migraine headaches. Patient secondary to NSAID she's had cough congestion mild body aches. No chest pain or stiffness or shortness breath. - Related Data Home Medications Medication Instructions Recorded Confirmed No Known Home Medications 02/18/21 02/18/21 Allergies Allergy/AdvReac Type Severity Reaction Status Date / Time tetanus and diphtheria Allergy Unknown Verified 02/18/21 11:06 toxoids Review of Systems ROS Statement: Those systems with pertinent positive or pertinent negative responses have been documented in the HPI. ROS Other: All systems not noted in ROS Statement are negative. Past Medical History Past Medical History: No Reported History Additional Past Medical History / Comment(s): Migraines History of Any Multi-Drug Resistant Organisms: None Reported Past Surgical History: Orthopedic Surgery Additional Past Surgical History / Comment(s): finger and elbow Past Anesthesia/Blood Transfusion Reactions: No Reported Reaction Past Psychological History: ADD/ADHD, Depression Smoking Status: Never smoker Past Alcohol Use History: None Reported Past Drug Use History: None Reported - Past Family History Mother Family Medical History: Thyroid Disorder General Exam Limitations: no limitations General appearance: alert, in no apparent distress Head exam: Present: atraumatic, normocephalic, normal inspection Eye exam: Present: normal appearance, PERRL, EOMI. Absent: scleral icterus, conjunctival injection, periorbital swelling ENT exam: Present: normal exam, normal oropharynx, mucous membranes moist Neck exam: Present: normal inspection, full ROM. Absent: tenderness, meningismus, lymphadenopathy Respiratory exam: Present: normal lung sounds bilaterally. Absent: respiratory distress, wheezes, rales, rhonchi, stridor Cardiovascular Exam: Present: normal rhythm, tachycardia, normal heart sounds. Absent: systolic murmur, diastolic murmur, rubs, gallop, clicks GI/Abdominal exam: Present: soft, normal bowel sounds. Absent: distended, tenderness, guarding, rebound, rigid Neurological exam: Present: alert, oriented X3, CN II-XII intact, reflexes normal. Absent: motor sensory deficit Course Vital Signs 02/18/21 02/18/21 02/18/21 09:28 10:07 10:31 Temperature 97.8 F Pulse Rate 115 H 103 H 85 Respiratory 18 16 16 Rate Blood Pressure 120/79 128/85 132/94 O2 Sat by Pulse 96 96 98 Oximetry Medical Decision Making - Medical Decision Making Patient is positive for COVID-19. Patient did receive monoclonal antibodies. Patient's headache is improved. - Lab Data Lab Results 02/18/21 Range/Units 10:17 Coronavirus (PCR) Detected A (Not Detectd) Disposition Clinical Impression: COVID-19 Disposition: HOME SELF-CARE Instructions (If sedation given, give patient instructions): Coronavirus Disease 2019 (COVID-19) Additional Instructions: Please return to the Emergency Department if symptoms worsen or any other concerns. Is patient prescribed a controlled substance at d/c from ED?: No Referrals: None,Stated [REFERRING] - 1-2 days Time of Disposition: 11:14
[2021-02-18] MEDS ORDERED: SODIUM CHLORIDE 0.9% 50 ML IVPB ONE (11:30)
[2021-02-18] MEDS ORDERED: CASIRIVIMAB/IMDEVIMAB (EUA) 1,200 MG in SODIUM CHLORIDE 0.9% 100 ML IVPB ONE (11:45)
[2021-02-18 14:09] VITALS: BP 132/99; PULSE 94
== END 2021-02-18 14:09 | disposition home or self-care (01) ==
LOC: EC 09:11
DX: U07.1 COVID-19 (principal)
CPT/HCPCS: 87635; 96365; 96375 ×3; 96361; 99284; J1200; J1885; J1790; Q0243

== ENCOUNTER 2024-01-23 19:35 | Emergency (ER) | payer BC, OTHER ==
--- NOTE | 2024-01-23 20:25 | ED ---
Headache HPI - General Chief Complaint: Headache Stated Complaint: Migraine Time Seen by Provider: 01/23/24 19:52 Source: RN notes reviewed, old records reviewed Mode of arrival: ambulatory Limitations: no limitations - History of Present Illness Initial Comments: This is a 28-year-old female to the ER for evaluation today. Patient presents for evaluation of migraine headaches. History of migraine migraine started today positive nausea vomiting no trauma no fever MD Complaint: headache, "migraine" -: days(s) Onset Description: gradual Location: frontal Severity: moderate Severity scale (1-10): 5 Quality: aching, throbbing Consistency: constant Improves With: nothing Worsens With: exertion/activity, movement of head/neck, light, noise Associated Symptoms: nausea, vomiting Other Symptoms: other (0) Treatments Prior to Arrival: none - Related Data Home Medications Medication Instructions Recorded Confirmed No Known Home Medications 02/18/21 02/18/21 Allergies Allergy/AdvReac Type Severity Reaction Status Date / Time tetanus and diphtheria Allergy Unknown Verified 01/23/24 19:49 toxoids Review of Systems ROS Statement: Those systems with pertinent positive or pertinent negative responses have been documented in the HPI. ROS Other: All systems not noted in ROS Statement are negative. Past Medical History Past Medical History: No Reported History Additional Past Medical History / Comment(s): Migraines History of Any Multi-Drug Resistant Organisms: None Reported Past Surgical History: Orthopedic Surgery Additional Past Surgical History / Comment(s): finger and elbow Past Anesthesia/Blood Transfusion Reactions: No Reported Reaction Past Psychological History: ADD/ADHD, Depression Smoking Status: Never smoker Past Alcohol Use History: None Reported Past Drug Use History: None Reported - Past Family History Mother Family Medical History: Thyroid Disorder General Exam Limitations: no limitations General appearance: alert, in no apparent distress Head exam: Present: atraumatic, normocephalic, normal inspection Eye exam: Present: normal appearance, PERRL, EOMI. Absent: scleral icterus, conjunctival injection, periorbital swelling ENT exam: Present: normal exam, mucous membranes moist Neck exam: Present: normal inspection. Absent: tenderness, meningismus, lymphadenopathy Respiratory exam: Present: normal lung sounds bilaterally. Absent: respiratory distress, wheezes, rales, rhonchi, stridor Cardiovascular Exam: Present: regular rate, normal rhythm, normal heart sounds. Absent: systolic murmur, diastolic murmur, rubs, gallop, clicks GI/Abdominal exam: Present: soft, normal bowel sounds. Absent: distended, tenderness, guarding, rebound, rigid Extremities exam: Present: normal inspection, full ROM, normal capillary refill. Absent: tenderness, pedal edema, joint swelling, calf tenderness Back exam: Present: normal inspection Neurological exam: Present: alert, oriented X3, CN II-XII intact Psychiatric exam: Present: normal affect, normal mood Skin exam: Present: warm, dry, intact, normal color. Absent: rash Course Vital Signs 01/23/24 01/23/24 19:48 22:17 Temperature 97.8 F 98.4 F Pulse Rate 97 78 Respiratory 16 18 Rate Blood Pressure 135/93 122/80 O2 Sat by Pulse 97 99 Oximetry - Reevaluation(s) Reevaluation #1: 01/23/24 20:24 Medical records reviewed Reevaluation #2: 01/23/24 20:24 Patient symptoms improving Reevaluation #3: 01/23/24 20:24 Patient informed of results questions answered Reevaluation #4: Was pt. sent in by a medical professional or institution (, PA, MANAGER TRAINEE, urgent care, hospital, or penitentiary...) When possible be specific @ -no Did you speak to anyone other than the patient for history (EMS, parent, family, police, friend...)? What history was obtained from this source @ -no Did you review nursing and triage notes (agree or disagree)? Why? @ -agree Are old charts reviewed (outside hosp., previous admission, EMS record, old EKG, old radiological studies, urgent care reports/EKG's, penitentiary records)? Report findings @ -yes Differential Diagnosis (chest pain, altered mental status, abdominal pain women, abdominal pain men, vaginal bleeding, weakness, fever, dyspnea, syncope, headache, dizziness, GI bleed, back pain, seizure, CVA, palpatations, mental health, musculoskeletal)? @ -prior EKG interpreted by me (3pts min.). @ -no X-rays interpreted by me (1pt min.). @ -no CT interpreted by me (1pt min.). @ -no U/S interpreted by me (1pt. min.). @ -no What testing was considered but not performed or refused? (CT, X-rays, U/S, labs)? Why? @ -none What meds were considered but not given or refused? Why? @ -none Did you discuss the management of the patient with other professionals (professionals i.e. , PA, MANAGER TRAINEE, lab, RT, psych nurse, public health social worker, service parts driver, teacher, combatant diver officer, housing case manager)? Give summary @ -no Was smoking cessation discussed for >3mins.? @ -no Was critical care preformed (if so, how long)? @ -no Were there social determinants of health that impacted care today? How? (Ho melessness, low income, unemployed, alcoholism, drug addiction, transportation, low edu. Level, literacy, decrease access to med. care, snf, rehab)? @ -none Was there de-escalation of care discussed even if they declined (Discuss DNR or withdrawal of care, Hospice)? DNR status @ -no What co-morbidities impacted this encounter? (DM, HTN, Smoking, COPD, CAD, Cancer, CVA, ARF, Chemo, Hep., AIDS, mental health diagnosis, sleep apnea, morbid obesity)? @ -none Was patient admitted / discharged? Hospital course, mention meds given and route, prescriptions, significant lab abnormalities, going to OR and other pertinent info. @ - 28 female given migraine headaches. Patient has headache improved here in the ER no acute distress can be discharged Discharge Undiagnosed new problem with uncertain prognosis? @ -no Drug Therapy requiring intensive monitoring for toxicity (Heparin, Nitro, Insulin, Cardizem)? @ -no Were any procedures done? @ -no Diagnosis/symptom? @ -Migraine headache Acute, or Chronic, or Acute on Chronic? @ -Acute Uncomplicated (without systemic symptoms) or Complicated (systemic symptoms)? @ -Complicated Side effects of treatment? @ -no Exacerbation, Progression, or Severe Exacerbation? @ -exacerbation Poses a threat to life or bodily function? How? (Chest pain, [place], [place], pneumonia, PE, COPD, DKA, ARF, appy, cholecystitis, CVA, Diverticulitis, Homicidal, Suicid al, threat to staff... and all critical care pts) @ -no Reevaluation #5: Differential Headache: Migraine, tension, cluster, carbon monoxide, central venous thrombosis, pension karma temporal arteritis, acute closure glaucoma, intercranial hemorrhage, mastoiditis, sinusitis, head injury, this is not meant to be an all-inclusive list. Medical Decision Making - Medical Decision Making 28 female given migraine headaches. Patient has headache improved here in the ER no acute distress can be discharged Disposition Clinical Impression: Headache, Migraine headache Disposition: HOME SELF-CARE Condition: Good Instructions (If sedation given, give patient instructions): Acute Headache (ED) Is patient prescribed a controlled substance at d/c from ED?: No Referrals: Kem De Jesus MD [Primary Care Provider] - 1-2 days Time of Disposition: 21:00
[2024-01-23] MEDS: SODIUM CHLORIDE 0.9% 1,000 ML IV STA (20:38)
[2024-01-23] MEDS: PROCHLORPERAZINE INJ 10 MG/2 ML VIAL IVP STA (20:38)
[2024-01-23] MEDS: diphenhydrAMINE 50 MG/ML 1 ML VIAL IVP STA (20:38)
[2024-01-23] MEDS: methylPREDNISolone SOD SUCCIN 250 MG in SODIUM CHLORIDE 0.9% 100 ML IVPB STA (20:46)
[2024-01-23 22:18] VITALS: BP 122/80; PULSE 78; RESP 18; TEMP 98.4
== END 2024-01-23 22:18 | disposition home or self-care (01) ==
LOC: EC 19:35
CPT/HCPCS: 96361; 96365; 96375; 99283

== ENCOUNTER → 2024-04-02 | Outpatient (CLI) | payer OTHER ==
--- NOTE | 2024-04-02 22:19 | MR ---
EXAMINATION TYPE: MR brain wo con DATE OF EXAM: 04/02/2024 10:08 PM COMPARISON: CT 10/20/2018. CLINICAL INDICATION: Female, 29 years old with history of G43.709; PHH, Migraine headaches, episode o f passing out during headache TECHNIQUE: Multi planar, multi sequence imaging was performed through the brain including: T1, T2, In version recovery, Diffusion weighted imaging, and gradient echo imaging. No gadolinium was given. FINDINGS: The romeo-white junctions, ventricular system, basal cisterns appear unremarkable. Midline structures show no abnormality. Diffusion-weighted imaging shows no evidence of restricted diffusion. The suscep tibility weighted images do not reveal any evidence for micro-hemorrhage. The bone marrow signal is within normal limits. Paranasal sinuses and mastoid air cells: No significant paranasal sinus disease. Visualized orbits: Orbital contents are intact. IMPRESSION: 1. No evidence of intracranial mass or acute/subacute infarct. [facility], , 04/02/2024 10:17 PM
== END | disposition home or self-care (01) ==
LOC: RADMRIMAIN 21:30
PROVIDERS: ATTEND Family Medicine
DX: G43.709 Chronic migraine without aura, not intractable, without status migrainosus (principal)
CPT/HCPCS: 70551